=== PATIENT | male | born 1985 | race Caucasian/White ===

== ENCOUNTER 2021-01-18 11:20 | Emergency (ER) | payer OTHER ==
[2021-01-18 11:37] VITALS: BP 132/82; PULSE 87; TEMP 99.7; BMI 25.8
[2021-01-18] MEDS ORDERED: IBUPROFEN 600 MG TABLET (FP) PO ONE ×2 (11:47→12:04)
== END 2021-01-18 12:44 | disposition home or self-care (01) ==
LOC: FER 11:20
DX: S09.93XA Unspecified injury of face, initial encounter (principal)
CPT/HCPCS: 99283-25

== ENCOUNTER 2021-03-23 11:52 | Emergency (ER) | payer OTHER ==
[2021-03-23 12:07] VITALS: BP 153/78; PULSE 63; TEMP 99.4; BMI 25.8
== END 2021-03-23 12:41 | disposition home or self-care (01) ==
LOC: FER 11:52
DX: T59.3X3A Toxic effect of lacrimogenic gas, assault, initial encounter (principal)
CPT/HCPCS: 99281-25

== ENCOUNTER 2021-11-02 19:34 | Emergency (ER) | payer OTHER ==
[2021-11-02 19:43] VITALS: BP 143/89; PULSE 78; TEMP 98.6; BMI 25.8
[2021-11-02] MEDS ORDERED: ACETAMINOPHEN 500 MG TABLET (FP) PO ONE (22:26)
[2021-11-02] MEDS ORDERED: ACETAMINOPHEN 500 MG TABLET (FP) ONE (22:29)
== END 2021-11-02 22:33 | disposition home or self-care (01) ==
LOC: FER 19:34
DX: S49.92XA Unspecified injury of left shoulder and upper arm, initial encounter (principal); X50.0XXA Overexertion from strenuous movement or load, initial encounter
CPT/HCPCS: 73030-TC-LT-FY; 73110-TC-LT-FY; 99284-25

== ENCOUNTER 2023-04-25 23:37 | Emergency (ER) | payer OTHER ==
[2023-04-25 23:43] VITALS: BP 149/103; PULSE 100; RESP 17; TEMP 99; BMI 25.8
== END 2023-04-26 00:44 | disposition home or self-care (01) ==
LOC: FER 23:37
DX: S63.642A Sprain of metacarpophalangeal joint of left thumb, initial encounter (principal); S53.402A Unspecified sprain of left elbow, initial encounter; S63.502A Unspecified sprain of left wrist, initial encounter; W50.4XXA Accidental scratch by another person, initial encounter; Y93.9 Activity, unspecified; Y92.9 Unspecified place or not applicable
CPT/HCPCS: 99283-25

== ENCOUNTER 2023-10-25 20:14 | Emergency (ER) | payer OTHER ==
[2023-10-25 20:32] VITALS: BP 125/84; PULSE 75; RESP 18; TEMP 98.6; BMI 25.1
== END 2023-10-25 21:41 | disposition home or self-care (01) ==
LOC: FER 20:14
DX: S92.514A Nondisplaced fracture of proximal phalanx of right lesser toe(s), initial encounter for closed fracture (principal); V03.00XA Pedestrian on foot injured in collision with car, pick-up truck or van in nontraffic accident, initial encounter; Y92.410 Unspecified street and highway as the place of occurrence of the external cause; Y99.0 Civilian activity done for income or pay
CPT/HCPCS: 73630-TC-RT-FY; 99283-25

== ENCOUNTER 2023-12-20 12:51 | Emergency (ER) | payer OTHER ==
[2023-12-20 13:25] VITALS: BP 122/75; PULSE 69; RESP 18; TEMP 98; BMI 25.8
== END 2023-12-20 13:36 | disposition home or self-care (01) ==
LOC: FER 12:51
DX: H57.89 Other specified disorders of eye and adnexa (principal); Z77.21 Contact with and (suspected) exposure to potentially hazardous body fluids
CPT/HCPCS: 99282-25

== ENCOUNTER 2025-04-09 12:31 | Emergency (ER) | payer OTHER, BC ==
[2025-04-09 12:47] VITALS: BP 137/88; PULSE 87; RESP 18; TEMP 98.1; BMI 26.5
[2025-04-09] MEDS ORDERED: KETOROLAC TROMETHAMINE 60 MG/2 ML VIAL ONE (12:48)
[2025-04-09] MEDS: KETOROLAC TROMETHAMINE 60 MG/2 ML VIAL IM ONE (12:52)
== END 2025-04-09 16:32 | disposition home or self-care (01) ==
LOC: FER 12:31
PROC: 3E0233Z Introduction of Anti-inflammatory into Muscle, Percutaneous Approach (ICD-10-PCS; principal; 2025-04-09)
DX: S13.9XXA Sprain of joints and ligaments of unspecified parts of neck, initial encounter (principal); S43.402A Unspecified sprain of left shoulder joint, initial encounter; Y35.891A Legal intervention involving other specified means, law enforcement official injured, initial encounter
CPT/HCPCS: 72040-TC; 72125-TC; 99285-25